=== PATIENT | female | born 1980 | race Caucasian/White ===

== ENCOUNTER → 2017-12-09 | Outpatient (CLI) | payer OTHER ==
[2017-12-09 12:35] LABS: BASO % 0.4 % (0.0-1.0); EOS # 0.1 10^3/uL (0.0-0.50); EOS % 0.8 % (0.0-3.0); HEMATOCRIT 43.2 % (36.0-47.0); HEMOGLOBIN 13.7 g/dl (12.0-15.5); IMMATURE GRANULOCYTE % 0.3 % (0-3.0); LYMPH # 1.8 10^3/uL (1.5-4.5); LYMPH % 24.6 % (24.0-44.0); MEAN CORPUSCULAR HEMOGLOBIN 30.6 pg (27.0-33.0); MEAN CORPUSCULAR HGB CONC 31.7 g/dl (32.0-36.5); MEAN CORPUSCULAR VOLUME 96.6 fl (80.0-96.0); MONO # 0.5 10^3/uL (0.0-0.8); NEUTROPHILS # 4.9 10^3/uL (1.8-7.7); NEUTROPHILS % 66.9 % (36.0-66.0); PLATELET COUNT, AUTOMATED 253 10^3/uL (150-450); RED BLOOD COUNT 4.47 10^6/uL (4.00-5.40); WHITE BLOOD COUNT 7.3 10^3/uL (4.0-10.0)
[2017-12-09 14:03] LABS: CHLAMYDIA DNA AMPLIFICATION NEGATIVE (NEGATIVE); GC DNA AMPLIFICATION NEGATIVE (NEGATIVE)
[2017-12-10 13:13] LABS: HBsAg Prenatal NEGATIVE (NEGATIVE); HIV 1&2 SCREEN CENTAUR NEGATIVE (NEGATIVE); RUBELLA IgG QUALITATIVE IMMUNE (IMMUNE)
[2017-12-10 13:13] LABS: HEPATITIS C VIRUS ABY INDEX 0.1 INDEX (<0.8)
== END ==
LOC: M LAB 10:23
DX: Z34.81 Encounter for supervision of other normal pregnancy, first trimester (principal); Z3A.01 Less than 8 weeks gestation of pregnancy
CPT/HCPCS: 86762

== ENCOUNTER 2017-12-15 14:55 | Emergency (ER) | payer OTHER ==
[2017-12-15 16:32] LABS: BASO % 0.3 % (0.0-1.0); EOS # 0.1 10^3/uL (0.0-0.50); EOS % 0.9 % (0.0-3.0); HEMOGLOBIN 12.7 g/dl (12.0-15.5); IMMATURE GRANULOCYTE % 0.3 % (0-3.0); LYMPH % 25.1 % (24.0-44.0); MEAN CORPUSCULAR HEMOGLOBIN 31.4 pg (27.0-33.0); MEAN CORPUSCULAR HGB CONC 32.6 g/dl (32.0-36.5); MEAN CORPUSCULAR VOLUME 96.5 fl (80.0-96.0); MONO # 0.5 10^3/uL (0.0-0.8); MONO % 5.9 % (0.0-5.0); NEUTROPHILS # 5.3 10^3/uL (1.8-7.7); NEUTROPHILS % 67.5 % (36.0-66.0); PLATELET COUNT, AUTOMATED 230 10^3/uL (150-450); RED BLOOD COUNT 4.04 10^6/uL (4.00-5.40); WHITE BLOOD COUNT 7.8 10^3/uL (4.0-10.0)
[2017-12-15 17:01] LABS: GLUCOSE, URINE (UA) MANUAL NEGATIVE (NEGATIVE); PROTEIN, URINE MANUAL REFLEX NEGATIVE (NEGATIVE)
[2017-12-15 17:02] LABS: BILIRUBIN, URINE MANUAL NEGATIVE (NEGATIVE); BLOOD URINE MANUAL RFX POSITIVE (NEGATIVE); KETONE, URINE MANUAL NEGATIVE (NEGATIVE); MICROSCOPIC INDICATED? RFX YES (NO); NITRITE, URINE MANUAL RFX NEGATIVE (NEGATIVE); UROBILINOGEN, URINE MANUAL NORMAL (NORMAL)
[2017-12-15 17:21] LABS: ANION GAP 8 MEQ/L (8-16); BACTERIA, URINE MOD AMOUNT; BLOOD UREA NITROGEN 11 MG/DL (7-18); CALCIUM LEVEL 8.8 MG/DL (8.5-10.1); CARBON DIOXIDE LEVEL 25 MEQ/L (21-32); CHLORIDE LEVEL 108 MEQ/L (98-107); CREATININE FOR GFR 0.73 MG/DL (0.55-1.30); GLOMERULAR FILTRATION RATE > 60.0 (>60); GLUCOSE, FASTING 104 MG/DL (70-100); HCG, SERUM QUANTITATIVE 28242 MIU/ML; HYALINE CAST, URINE NONE SEEN /lpf (0-1); MUCUS, URINE SMALL AMOUNT (NEGATIVE); RBC, URINE 0-1 /hpf (0-3); SODIUM LEVEL 141 MEQ/L (136-145)
[2017-12-15 17:22] LABS: AMORPHOUS SEDIMENT, URINE MOD AMOUNT (NEGATIVE); MICROSCOPIC EXAM PERFORMED; OTHER SEDIMENT, URINE UNKN. FIBERS
[2017-12-15 17:23] LABS: SQUAMOUS EPITHELIAL CELL URINE LARGE AMOUNT /hpf (SMALL AMT)
[2017-12-15] MEDS: RHOGAM 300 MCG (1500 IU) INJ (J2790) IM (17:45)
[2017-12-15 18:17] LABS: RH ONLY VISION 1 1
== END 2017-12-15 19:16 | disposition home or self-care (01) ==
LOC: M ED 14:55
DX: O02.1 Missed abortion (principal); Z3A.10 10 weeks gestation of pregnancy; R19.09 Other intra-abdominal and pelvic swelling, mass and lump
CPT/HCPCS: 76801

== ENCOUNTER 2017-12-26 10:43 | Day surgery (SDC) | payer OTHER ==
[~2017-12-26 10:43] MED LIST: GLYCOPYRROLATE INJ 0.2 MG/ML 2 ML VIAL As Ordered; KETOROLAC 60 MG/2 ML VIAL (J1885) As Ordered; LIDOCAINE 2% INJ 100 MG/5 ML SDV (FOR ANES.) As Ordered; MIDAZOLAM INJ 2 MG/2 ML VIAL (J2250) As Ordered; NEOSTIGMINE 10 MG/10 ML VIAL (J2710) As Ordered; ONDANSETRON 4MG/2ML VIAL (J2405) As Ordered; PROPOFOL 200 MG/20 ML VIAL As Ordered; ROCURONIUM BROMIDE 50 MG/5 ML VIAL As Ordered; dexameTHASONE 4 MG/ML 1ML VIAL (J1100) As Ordered; fentaNYL 100 MCG/2 ML INJECTION (J3010) As Ordered
[2017-12-26 11:37] LABS: HEMATOCRIT 37.5 % (36.0-47.0); HEMOGLOBIN 12.4 g/dl (12.0-15.5); MEAN CORPUSCULAR HEMOGLOBIN 31.2 pg (27.0-33.0); MEAN CORPUSCULAR HGB CONC 33.1 g/dl (32.0-36.5); MEAN CORPUSCULAR VOLUME 94.5 fl (80.0-96.0); PLATELET COUNT, AUTOMATED 223 10^3/uL (150-450); RED BLOOD COUNT 3.97 10^6/uL (4.00-5.40); RED CELL DISTRIBUTION WIDTH 12.7 % (11.5-14.5)
[2017-12-26 11:52] LABS: CONTROL LINE HCG INT CTR LINE PRESENT; HCG, SERUM QUALITATIVE POSITIVE (NEGATIVE)
[2017-12-26] MEDS: LR 1,000 ML IV (12:00)
[2017-12-26] MEDS: BUPIVACAINE HCL 0.25% 30 ML VIAL As Ordered (15:32)
[2017-12-26] MEDS: METOCLOPRAMIDE INJ 10MG/2ML VIAL (J2765) IV (15:57)
[2017-12-26] MEDS: ONDANSETRON 4MG/2ML VIAL (J2405) IV (15:57)
[2017-12-26] MEDS: PERCOCET 5MG/325MG TAB PO ×2 (15:58→16:28)
[2017-12-26] MEDS ORDERED: LR 1,000 ML IV ×2 (16:00)
[2017-12-26] MEDS ORDERED: HYDROMORPHONE HCL 0.5 MG/ 0.5 ML SYRINGE (J1170 PER 1) IV (16:00)
[2017-12-26] MEDS ORDERED: PERCOCET 5MG/325MG TAB PO ×2 (16:00)
[2017-12-26] MEDS ORDERED: MEPERIDINE INJ 25 MG/ML VIAL (J2175) IV (16:00)
[2017-12-26] MEDS: fentaNYL 100 MCG/2 ML INJECTION (J3010) IV ×4 (16:12→16:29)
== END 2017-12-26 18:20 | disposition home or self-care (01) ==
LOC: M SDC 10:43
DX: N83.292 Other ovarian cyst, left side (principal); O02.1 Missed abortion; R06.83 Snoring; E66.9 Obesity, unspecified; Z68.32 Body mass index [BMI] 32.0-32.9, adult
CPT/HCPCS: 58661